=== PATIENT | female | born 1960 | race Caucasian/White ===

== ENCOUNTER 2017-06-19 22:30 | Emergency (ER) | payer BC ==
[~2017-06-19] VITALS: Ht 165.1 cm; Wt 113.6 kg
[2017-06-19 23:13] LABS: EOS # 0.2 (0.04-0.40); EOS % 2.6 % (1.0-5.0); HEMOGLOBIN 13.6 g/dL (12.5-16.0); LYMPH# 2.6 (1.50-4.00); MEAN CELL VOLUME 87 fl (78-100); MEAN CORPUSCULAR HEMOGLOBIN 28 pg (27-31); MEAN CORPUSCULAR HGB CONC 32 g/dL (33-37); MONO # 0.3 (0.20-0.80); NEU # 2.7 (1.40-6.50); PLATELET COUNT 249 K/mm3 (130-400); RED BLOOD COUNT 4.82 M/mm3 (4.10-5.30); WHITE BLOOD COUNT 5.8 K/mm3 (4.8-10.8)
[2017-06-19 23:24] LABS: ALBUMIN 4.2 g/dL (3.5-5.0); ALT/SGPT 64 U/L (9-52); AST-SGOT 83 U/L (14-36); BUN/CREATININE RATIO 17.5 (6.0-26.0); CALCIUM 8.8 mg/dL (8.4-10.2); CARBON DIOXIDE 26 mmol/L (22-30); GLUCOSE 282 mg/dL (65-105); POTASSIUM 4.7 mmol/L (3.6-5.0); SODIUM 139 mmol/L (137-145); TOTAL BILIRUBIN 0.4 mg/dL (0.2-1.3); TOTAL PROTEIN 7.4 g/dL (6.3-8.2)
[2017-06-19 23:31] LABS: ALCOHOL IN-HOUSE < 10 mg/dL
[2017-06-20 07:24] LABS: URINE APPEARANCE HAZY; URINE COLOR YELLOW
[2017-06-20 07:25] LABS: URINE BILIRUBIN NEGATIVE (NEGATIVE); URINE BLOOD TRACE (NEGATIVE); URINE KETONE NEGATIVE (NEGATIVE); URINE LEUKOCYTE ESTERASE NEGATIVE (NEGATIVE); URINE NITRATE NEGATIVE (NEGATIVE); URINE PROTEIN(semi-quant) 2+ mg/dL (NEGATIVE); URINE UROBILINOGEN NORMAL (NORMAL)
[2017-06-20 10:38] VITALS: BP 138/93
== END 2017-06-20 10:38 ==
LOC: ED 22:34 → EDBD 22:34 → ED 22:35
PROVIDERS: Family Medicine
DX: J96.01 Acute respiratory failure with hypoxia (principal); R11.0 Nausea; R78.1 Finding of opiate drug in blood; R78.5 Finding of other psychotropic drug in blood
CPT/HCPCS: J2310; J2405; J7030